=== PATIENT | female | born 1960 | race Caucasian/White ===

== ENCOUNTER 2017-06-01 19:42 | Emergency (ER) | payer MEDICAID ==
[~2017-06-01] VITALS: Ht 170.2 cm; Wt 63.6 kg
[2017-06-01] MEDS ORDERED: CITA20TA9 PO (19:47)
[2017-06-01] MEDS ORDERED: ZOLP10 PO (19:47)
[2017-06-01] MEDS ORDERED: ACETAMINOPHEN 500 MG TABLET PO ONE (21:45)
[2017-06-01 22:00] LABS: BASOPHILS % (AUTO) 0.3 % (0.0-2.0); EOSINOPHILS % (AUTO) 2.4 % (1.0-6.0); HEMATOCRIT 39.4 % (36-46); HEMOGLOBIN 13.4 g/dL (12.0-16.0); LYMPHOCYTES # (AUTO) 2.7 K/uL (1.0-4.8); LYMPHOCYTES % (AUTO) 36.2 % (22.0-44.0); MEAN CORPUSCULAR HEMOGLOBIN 30.2 pg (26.0-34.0); MEAN CORPUSCULAR HGB CONC 33.9 G/dL (31.0-37.0); MEAN CORPUSCULAR VOLUME 89 fL (80-100); MONOCYTES # (AUTO) 0.4 K/uL (0.1-1.0); MONOCYTES % (AUTO) 4.9 % (2.0-9.0); NEUTROPHILS # (AUTO) 4.2 K/uL (1.8-7.7); NEUTROPHILS % (AUTO) 56.2 % (40.0-70.0); PLATELET COUNT (AUTO) 353 K/uL (150-450); RED BLOOD CELL COUNT(AUTO) 4.42 MIL/uL (4.00-5.20); RED CELL DISTRIBUTION WIDTH 13.5 % (11.5-14.5); WHITE BLOOD COUNT (AUTO) 7.4 K/uL (4.5-11.0)
[2017-06-01 22:09] LABS: ANION GAP 11 mmol/L (8-16); CALCIUM, TOTAL 9.8 mg/dL (8.8-10.5); CARBON DIOXIDE 28 mmol/L (22-29); CHLORIDE 101 mmol/L (98-107); CREATININE 0.94 mg/dL (0.60-1.30); GLOMERULAR FILTR. RATE CALC > 60 mL/min (>60); POTASSIUM 3.6 mmol/L (3.5-5.1); SODIUM SERUM 140 mmol/L (136-145); UREA NITROGEN, BLOOD 25 mg/dL (7-18)
[2017-06-01 22:50] VITALS: BP 160/92
== END 2017-06-01 22:51 | disposition home or self-care (01) ==
LOC: EMS 19:43
DX: R42 Dizziness and giddiness (principal)
CPT/HCPCS: 93005; 99285

== ENCOUNTER 2020-09-06 16:52 | Emergency (ER) | payer MEDICAID ==
[~2020-09-06 16:52] MED LIST: CITA-144 PO; ZOLP10TA8 PO
== END 2020-09-06 17:48 | disposition home or self-care (01) ==
LOC: EMS 16:52
DX: Z20.828 Contact with and (suspected) exposure to other viral communicable diseases (principal); Z79.899 Other long term (current) drug therapy
CPT/HCPCS: 99283; U0003